=== PATIENT | male | born 1995 | race Caucasian/White ===

== ENCOUNTER 2018-12-23 17:01 | Emergency (ER) | payer OTHER ==
[~2018-12-23] VITALS: Ht 170.2 cm; Wt 78.5 kg
[2018-12-23 17:56] VITALS: BP 116/76
--- NOTE | 2018-12-23 18:15 | NUR ---
PT BIB SELF WITH C/O RIGHT TESTICULAR PAIN X 1 WK; DENIES INJURY OR DYSURIA .PAIN RADIATES RIGHT INGUINAL AREA. PER PT PAIN INCREASES WITH PHYSICAL ACTIVITY , 5/10 AT THIS TIME. DENIES ANY SWELLING. REPORTS OF FEELING SLIGH BULDGING ON THE RT TESTICULAR REGION, PAIN TO TOUCH. PAIN GETTING INCREASED SINCE LAST TWO DAYS. NO PAST MEDICAL HX, NO MEDS TAKEN AT HOME. ER MD TO SEE THE PT. US TECH AT THE BEDSIDE. WILL CONTINUE TO MONITOR PT. HX--DENIES RX---NONE
[2018-12-23 18:54] LABS: APPEARANCE,URINE CLEAR (CLEAR); BILIRUBIN,URINE 1+ (NEGATIVE); BLOOD, URINE TRACE-I (NEGATIVE); COLOR,URINE YELLOW (YELLOW); LEUKOCYTE ESTERASE ,URINE NEGATIVE (NEGATIVE); NITRITE, URINE NEGATIVE (NEGATIVE); UGLUCOSE NEGATIVE (NEGATIVE)
[2018-12-23 18:58] LABS: RBC,URINE 0-5 /HPF (0-5); WBC,URINE 0-5 /HPF (0-5)
--- NOTE | 2018-12-23 19:10 | NUR ---
REPORT GIVEN BY IVELISSE MONTES
--- NOTE | 2018-12-23 20:11 | NUR ---
Patient discharged with v/s stable. Written and verbal after care instructions given and explained. Pt encouraged to avoid caffeine, spicy and fatty foods. Patient alert, oriented and verbalized understanding of instructions. Ambulatory with steady gait. All questions addressed prior to discharge. ID band removed. Patient advised to follow up with PMD. Rx of PRILOSEC was given. Patient educated on indication of medication including possible reaction and side effects. Opportunity to ask questions provided and answered.
[2018-12-23 20:12] VITALS: BP 116/76
[2018-12-25 06:07] LABS: CHLAMYDIA TRACHOMATIS AMP DNA Negative (Negative)
== END 2018-12-23 20:11 | disposition home or self-care (01) ==
LOC: MED 17:01
DX: N50.811 Right testicular pain (principal); R10.31 Right lower quadrant pain; K21.9 Gastro-esophageal reflux disease without esophagitis
CPT/HCPCS: 36415; 76870; 81001; 87491; 99284; Q0092

== ENCOUNTER 2019-07-25 19:25 | Emergency (ER) | payer OTHER ==
[~2019-07-25] VITALS: Ht 160 cm; Wt 77.6 kg
[2019-07-25 19:30] VITALS: BP 142/68
--- NOTE | 2019-07-25 19:41 | NUR ---
23 Y/O MALE BIB SELF FOR C/O ABD, EPIGASTRIC PAIN 01/22. SHARP, STABBING NON-RADIATING AND TENDER TO TOUCH. STARTED A COUPLE HOURS AGO, AFTER WORKING OUT. PT ADMITS TO N/V. DENIES DIARRHEA. BOWEL SOUNDS ACTIVE. LAST VOMIT EPISODE X 30 MIN AGO. PHM: NONE ALLERGIES: NKA
--- NOTE | 2019-07-25 19:42 | NUR ---
ERMD IN TO ASSESS PT
[2019-07-25] MEDS ORDERED: FAMOTIDINE 20 MG TAB PO ONE (19:55)
[2019-07-25] MEDS ORDERED: LIDOCAINE VISCOUS 2% 20 ML UDC PO ONE (19:55)
[2019-07-25] MEDS ORDERED: NACL 0.9% 1,000 ML IV ONE (19:55)
--- NOTE | 2019-07-25 20:11 | NUR ---
[facility] AT BEDSIDE TO DRAW LABS
[2019-07-25 20:14] LABS: BASOPHILS # (AUTO) 0.1 K/uL (0.00-0.22); BASOPHILS % (AUTO) 0.5 % (0.0-2.0); EOSINOPHILS # (AUTO) 0.1 K/uL (0-0.4); EOSINOPHILS % (AUTO) 0.6 % (0.0-4.0); HEMATOCRIT 46.7 % (36-52); HEMOGLOBIN 15.4 g/dL (12.0-18.0); LYMPHOCYTES % (AUTO) 13.4 % (20.5-51.1); MEAN CORPUSCULAR HEMOGLOBIN 28 pg (27-31); MEAN CORPUSCULAR HGB CONC 33 g/dL (33-37); MEAN CORPUSCULAR VOLUME 85.8 fL (80-94); MONOCYTES # (AUTO) 0.7 K/uL (0.8-1.0); MONOCYTES % (AUTO) 4.8 % (1.7-9.3); NEUTROPHILS # (AUTO) 12.1 K/uL (1.8-7.7); NEUTROPHILS % (AUTO) 80.7 % (42.2-75.2); PLATELET COUNT (AUTO) 201 K/uL (140-450); RED BLOOD CELL COUNT(AUTO) 5.44 MIL/uL (4.20-6.10); RED CELL DISTRIBUTION WIDTH 13.5 % (11.6-13.7)
[2019-07-25 20:26] LABS: ALBUMIN 4.5 g/dL (3.4-5.0); ANION GAP 12.2 (8-16); CARBON DIOXIDE 29.6 mmol/L (21-32); CREATININE 1.1 mg/dL (0.6-1.3); POTASSIUM 3.8 mmol/L (3.5-5.1); TOTAL BILIRUBIN 0.8 mg/dL (0.0-1.0)
[2019-07-25] MEDS ORDERED: MORPHINE SULFATE 4 MG/ML SYR IVP ONE (20:40)
--- NOTE | 2019-07-25 20:40 | NUR ---
pt states feelings of worsening pain. ermd aware. orders received.
--- NOTE | 2019-07-25 21:34 | NUR ---
PT TAKEN TO CT SCAN VIA WHEELCHAIR.
--- NOTE | 2019-07-25 21:42 | NUR ---
PT BACK FROM CT VIA WHEELCHAIR.
[2019-07-25] MEDS ORDERED: HYDROcodone/APAP 5/325 MG 1 TAB TAB PO ONE (22:30)
[2019-07-25 22:35] VITALS: BP 142/68
--- NOTE | 2019-07-25 22:35 | NUR ---
Patient discharged with v/s stable. Written and verbal after care instructions given and explained. Patient alert, oriented and verbalized understanding of instructions. Ambulatory with steady gait. All questions addressed prior to discharge. ID band removed. Patient advised to follow up with PMD. Rx of TYLENOL, PEPCID, TRAMADOL given. Patient educated on indication of medication including possible reaction and side effects. Opportunity to ask questions provided and answered.
[2019-07-26] MEDS ORDERED: IBUP-1842 PO (04:29)
== END 2019-07-25 22:35 | disposition home or self-care (01) ==
LOC: MED 19:25
DX: R10.13 Epigastric pain (principal); R11.2 Nausea with vomiting, unspecified
CPT/HCPCS: 36415; 74177; 80053; 82150; 83690; 85025; 96361; 96374; 99285; J2270; J7030; Q9967

== ENCOUNTER 2019-07-26 01:56 | Inpatient (IN) | payer OTHER ==
[~2019-07-26] VITALS: Ht 170.2 cm; Wt 63.5 kg
[2019-07-26 02:19] VITALS: BP 148/86
--- NOTE | 2019-07-26 02:19 | NUR ---
PT AMBULATED TO BED 6 WITH STEADY GAIT.
--- NOTE | 2019-07-26 02:27 | NUR ---
DR. REY AT BEDSIDE.
--- NOTE | 2019-07-26 02:28 | NUR ---
IV PLACED IN L AC 20G.
[2019-07-26] MEDS ORDERED: NACL 0.9% 1,000 ML IV ONE (02:40)
[2019-07-26] MEDS ORDERED: MORPHINE SULFATE 4 MG/ML SYR IVP ONE ×2 (02:45→03:10)
--- NOTE | 2019-07-26 03:00 | NUR ---
23 Y/O MALE C/O RLQ PAIN X 30 MIN. NON RADIATING. PT HAD VOMITING EPISODE BEFORE COMING TO THE ER. VISITED THE EARLIER TODAY FOR ABD PAIN. CAME BACK AFTER WORSENING OF PAIN. PMH: NONE ALLERGIES: NKA
[2019-07-26] MEDS ORDERED: MORPHINE SULFATE 4 MG/ML SYR ONE (03:07)
--- NOTE | 2019-07-26 03:17 | NUR ---
PT TAKEN TO CT SCAN VIA WHEELCHAIR
--- NOTE | 2019-07-26 03:25 | NUR ---
PT RETURNED FROM CT SCAN
--- NOTE | 2019-07-26 03:30 | NUR ---
LAB AT BEDSIDE. TO DRAW LABS
[2019-07-26] MEDS ORDERED: PIPERACILLIN/TAZOBACTAM 3.375 GM in DEXTROSE 5% 50 ML IV ONE (03:50)
[2019-07-26] MEDS ORDERED: PIPERACILLIN/TAZOBACTAM 3.375 GM VIAL IV ONE (04:09)
--- NOTE | 2019-07-26 04:12 | NUR ---
PT RESTING IN BED, EYES CLOSED. PALLOR COLOR NOTED. RESIRATIONS EVEN AND UNLABORED. CHEST RISE IS SYMMETRICAL. WILL CONTINUE MONITOR.
[2019-07-26 04:19] LABS: PROTHROMBIN TIME 11.5 secs (10.8-13.4)
[2019-07-26] MEDS ORDERED: IBUP-1842 PO (04:29)
--- NOTE | 2019-07-26 05:00 | NUR ---
ERMD AT BEDSIDE
--- NOTE | 2019-07-26 05:40 | NUR ---
PT BEING TRANSFERRED TO MED SURG VIA WHEELCHAIR
--- NOTE | 2019-07-26 05:50 | NUR ---
RECEIVED PATIENT IN STABLE CONDITION VIA WHEELCHAIR FROM ER. RESPIRATIONS EVEN, UNLABORED. IV SITE TO LEFT AC 20G PATENT/INTACT, INFUSING FLUIDS WELL. MRSA SCREEN COMPLETED. ORIENTED PATIENT TO STAFF/ROOM/CALL LIGHT. NO C/O PAIN. NO S/SX ACUTE DISTRESS NOTED. CALL LIGHT WITHIN REACH. WILL CONTINUE TO MONITOR.
--- NOTE | 2019-07-26 05:50 | NUR ---
Patient will be admitted to care of DR VENTURA. Admited to Med/Surg. Will go to room 106B. Belongings list completed. Report to CLIFF OVIEDO.
--- NOTE | 2019-07-26 07:06 | NUR ---
WILL ENDORSE PATIENT IN STABLE CONDITION TO AM SHIFT NURSE FOR CONTINUITY OF CARE.
--- NOTE | 2019-07-26 07:30 | NUR ---
RECEIVED BEDSIDE SHIFT REPORT FROM PYTHON PROGRAMMER NURSE FOR CONTINUATION OF CARE.
[2019-07-26] MEDS ORDERED: LIDOCAINE 1% 500 MG/50 ML VIAL ONE (09:00)
[2019-07-26] MEDS ORDERED: BUPIVACAINE-MPF/EPI 0.25% 30 ML VIAL INJ ONE (09:00)
[2019-07-26 09:22] LABS: BASOPHILS % (AUTO) 0.2 % (0.0-2.0); HEMOGLOBIN 14.1 g/dL (12.0-18.0); LYMPHOCYTES # (AUTO) 1.3 K/uL (2.0-11.5); MEAN CORPUSCULAR HEMOGLOBIN 28 pg (27-31); MEAN CORPUSCULAR HGB CONC 34 g/dL (33-37); MEAN CORPUSCULAR VOLUME 84.8 fL (80-94); MONOCYTES # (AUTO) 1.4 K/uL (0.8-1.0); MONOCYTES % (AUTO) 6.6 % (1.7-9.3); NEUTROPHILS # (AUTO) 18.7 K/uL (1.8-7.7); PLATELET COUNT (AUTO) 176 K/uL (140-450); RED BLOOD CELL COUNT(AUTO) 4.96 MIL/uL (4.20-6.10); RED CELL DISTRIBUTION WIDTH 13.4 % (11.6-13.7); WHITE BLOOD COUNT (AUTO) 21.4 K/uL (4.8-10.8)
[2019-07-26 09:32] LABS: ANION GAP 11.6 (8-16); CARBON DIOXIDE 27.1 mmol/L (21-32); CREATININE 1.1 mg/dL (0.6-1.3); POTASSIUM 3.7 mmol/L (3.5-5.1)
[2019-07-26 09:47] LABS: NEUTROPHILS % (AUTO) 87.2 % (42.2-75.2)
[2019-07-26] MEDS ORDERED: MIDAZOLAM 2 MG/2 ML VIAL ONE (10:00)
[2019-07-26] MEDS ORDERED: ROCURONIUM 50 MG/5 ML VIAL IV ONE (10:00)
[2019-07-26] MEDS ORDERED: GLYCOPYRROLATE 0.2 MG/ML VIAL ONE (10:00)
[2019-07-26] MEDS ORDERED: PROPOFOL 200 MG/20 ML VIAL IV ONE (10:00)
[2019-07-26] MEDS ORDERED: fentaNYL 0.05 MG/ML VIAL ONE (10:00)
[2019-07-26] MEDS ORDERED: ONDANSETRON 4 MG/2 ML VIAL ONE (10:00)
[2019-07-26] MEDS ORDERED: NEOSTIGMINE 1:1000 10 MG/10 ML VIAL ONE (10:00)
[2019-07-26] MEDS ORDERED: SEVOFLURANE 250 ML BTL INH ONE (10:00)
[2019-07-26] MEDS ORDERED: MORPHINE SULFATE 4 MG/ML SYR IVP PRN (10:30)
[2019-07-26] MEDS ORDERED: MEPERIDINE 25 MG/ML SYR IVP PRN (10:35)
[2019-07-26] MEDS ORDERED: HYDROcodone/APAP 5/325 MG 1 TAB TAB PO PRN (11:05)
[2019-07-26] MEDS ORDERED: HYDROmorphone 1 MG/ML AMP IVP PRN (11:05)
[2019-07-26] MEDS ORDERED: PIPERACILLIN/TAZOBACTAM 3.375 GM in DEXTROSE 5% 50 ML IV SCH ×4 (12:00)
[2019-07-26 16:00] VITALS: BP 134/82
--- NOTE | 2019-07-28 10:50 | NUR ---
PCP Appointment: IRINEO contacted Yvette from Dr. Tyron Dubon's office [phone] to schedule hospital follow up. Per Yvette, patient has an appointment with Dr. Tyron Dubon on 07/31/2019 at 1030 through telemedicine. Patient was notified. No further needs identified.
== END 2019-07-26 18:10 | disposition home or self-care (01) | DRG 234 ==
LOC: MED 01:56 → MTU 05:15
PROVIDERS: ADMIT Internal Medicine; ATTEND Internal Medicine
PROC: 0DTJ4ZZ Resection of Appendix, Percutaneous Endoscopic Approach (ICD-10-PCS; principal; 2019-07-26 09:30)
DX: K35.80 Unspecified acute appendicitis (principal)
CPT/HCPCS: 36415; 80048; 85025; 85610; 85730; 86886; 86900; 86901; 87040; 96365; 96375; 99285; J1170; J2001; J2250; J2270; J2405; J2543; J2704; J2710; J3010; J3490; J7060

== ENCOUNTER 2021-08-03 11:35 | Emergency (ER) | payer OTHER ==
[~2021-08-03] VITALS: Ht 167.6 cm; Wt 72.6 kg
[~2021-08-03 11:35] MED LIST: IBUP-1842 PO
[2021-08-03 11:39] VITALS: BP 141/68
--- NOTE | 2021-08-03 13:06 | NUR ---
PERCY QUINTERO BEDSIDE EVALUATING PT
--- NOTE | 2021-08-03 13:09 | NUR ---
25/M C/O GENERALIZED ABDOMINAL PAIN SINCE THIS MORNING, STATING "I FEEL BLOATED." DENIES N/V/D, LAST BM ONE HOUR AGO, STATES "IT WAS INCOMPLETE, I FEEL CONSTIPATED." REPORTS TAKING A LAXATIVE THIS MORNING WITH NO RELIEF. ABDOMEN IS SOFT AND NO-TENDERNESS NOTED UPON PALPATION. PAIN IS 9/10, LLQ REGION. PT A&OX4 MEDHX: DENIES ALLERGIES: NKA
[2021-08-03] MEDS ORDERED: KETOROLAC 30 MG/ML VIAL IM ONE (13:10)
--- NOTE | 2021-08-03 13:17 | NUR ---
lab bedside collecting bloodwork
[2021-08-03 13:36] LABS: BASOPHILS % (AUTO) 0.5 % (0.0-2.0); EOSINOPHILS % (AUTO) 0.3 % (0.0-4.0); HEMATOCRIT 45.8 % (36-52); HEMOGLOBIN 15.6 g/dL (12.0-18.0); LYMPHOCYTES # (AUTO) 2.1 K/uL (2.0-11.5); LYMPHOCYTES % (AUTO) 31.5 % (20.5-51.1); MEAN CORPUSCULAR HEMOGLOBIN 30 pg (27-31); MEAN CORPUSCULAR HGB CONC 34 g/dL (33-37); MEAN CORPUSCULAR VOLUME 86.4 fL (80-94); MONOCYTES # (AUTO) 0.4 K/uL (0.8-1.0); MONOCYTES % (AUTO) 6.1 % (1.7-9.3); NEUTROPHILS % (AUTO) 61.6 % (42.2-75.2); PLATELET COUNT (AUTO) 192 K/uL (140-450); RED CELL DISTRIBUTION WIDTH 13.7 % (11.6-13.7); WHITE BLOOD COUNT (AUTO) 6.6 K/uL (4.8-10.8)
[2021-08-03 14:08] LABS: ANION GAP 10.1 (8-16); CREATININE 1.1 mg/dL (0.6-1.3); POTASSIUM 4.1 mmol/L (3.5-5.1); TOTAL BILIRUBIN 0.6 mg/dL (0.0-1.0)
[2021-08-03 14:13] LABS: APPEARANCE,URINE CLEAR (CLEAR); BILIRUBIN,URINE NEGATIVE (NEGATIVE); BLOOD, URINE TRACE-I (NEGATIVE); COLOR,URINE YELLOW (YELLOW); LEUKOCYTE ESTERASE ,URINE NEGATIVE (NEGATIVE); NITRITE, URINE NEGATIVE (NEGATIVE); UGLUCOSE NEGATIVE (NEGATIVE)
[2021-08-03 14:15] LABS: ALBUMIN 4.2 g/dL (3.4-5.0)
[2021-08-03] MEDS ORDERED: IBUP-2213 PO (14:21)
[2021-08-03 14:22] LABS: RBC,URINE 0-5 /HPF (0-5); WBC,URINE 0-5 /HPF (0-5)
[2021-08-03 14:41] VITALS: BP 117/78
== END 2021-08-03 14:41 | disposition home or self-care (01) ==
LOC: MED 11:35
DX: R10.84 Generalized abdominal pain (principal); Z79.899 Other long term (current) drug therapy; Z90.49 Acquired absence of other specified parts of digestive tract
CPT/HCPCS: 36415; 74022; 80053; 81001; 83690; 85025; 96372; 99284; J1885; 81002